=== PATIENT | female | born 1990 | race Caucasian/White ===

== ENCOUNTER 2018-06-09 07:19 | Inpatient (IN) ==
[2018-06-09] MEDS ORDERED: MEPERIDINE 50 MG/1 ML VIAL IV PRN (07:34)
[2018-06-09] MEDS: LACTATED RINGERS 1,000 ML IV SCH (07:50)
[2018-06-09 08:07] LABS: Basophils % 0.2 % (0.0-0.8); Eosinophils % 0.2 % (0.00-10.9); Hematocrit 33.4 VOL% (35.7-47.0); Immature Granulocytes % 0.6 %; Immature Granulocytes Absolute 0.07 #; Lymphocytes # 2.2 10*3/uL (1.4-4.0); Lymphocytes % 18.3 % (21.3-54.2); Mean Corpuscular HGB Conc 32.9 GM/DL (32-36); Mean Corpuscular Hemoglobin 28 PG (27-34); Mean Corpuscular Volume 86.1 FL (87-102); Mean Platelet Volume 11.4 FL (9.6-12.0); Monocytes # 0.6 10*3/uL (0.11-0.8); Monocytes % 4.5 % (1.7-12.7); Neutrophils # 9.2 10*3/uL (1.4-7.4); Neutrophils % 76.2 % (38.7-73.9); Platelet Count 247 T/CUMM (130-400); Red Blood Count 3.88 MC/CUMM (3.8-5.5); Red Cell Distribution Width 14.3 % (9.3-17.3); White Blood Count 12.1 T/CUMM (4-12)
[2018-06-09 08:15] LABS: INR 0.9; PT Patient Result 9.4 SECS; Partial Thromboplastin Time 29.1 SECS (0-40)
[2018-06-09 08:25] LABS: Alanine Aminotransferase 18 U/L (13-56); Albumin 2.4 G/DL (3.4-5.0); Alkaline Phosphatase 157 U/L (45-117); Aspartate Amino Transferase 15 U/L (0-37); Bilirubin,Total < 0.39 MG/DL (0.2-1.0); Blood Urea Nitrogen 11 MG/DL (7-18); Calcium 8.2 MG/DL (8.5-10.1); Glucose 86 MG/DL (74-106); Osmolality,Calculated 276.4 MOS/KG (273-304); Potassium 3.7 MMOL/L (3.5-5.1); Sodium 140 MMOL/L (136-145); Total Protein 6.7 G/DL (6.4-8.3); Uric Acid 4.1 MG/DL (2.6-6.0)
[2018-06-09 08:34] LABS: Rapid Plasma Reagin Confirm NONREACTIVE (Nonreactive)
[2018-06-09] MEDS: AMPICILLIN INJ 2,000 MG in SODIUM CHLORIDE 0.9% 100 ML IV SCH ×2 (17:50→22:30)
[2018-06-09] MEDS: LABETALOL 100 MG TABLET PO SCH (21:13)
[2018-06-10] MEDS ORDERED: OXYTOCIN/LR 20 UNIT/1,000 ML BAG IV SCH ×2 (02:00→06:00)
[2018-06-10] MEDS: LACTATED RINGERS 1,000 ML IV SCH ×2 (02:12→12:49)
[2018-06-10] MEDS: AMPICILLIN INJ 2,000 MG in SODIUM CHLORIDE 0.9% 100 ML IV SCH ×3 (05:00→18:12)
[2018-06-10] MEDS: LABETALOL 100 MG TABLET PO SCH ×2 (09:00→21:22)
[2018-06-10] MEDS ORDERED: LACTATED RINGERS 1,000 ML IV ONE (10:04)
[2018-06-10] MEDS ORDERED: CITRIC ACID/SODIUM CITRATE 30 ML UDCUP PO ONE (10:04)
[2018-06-10] MEDS ORDERED: FAMOTIDINE 20 MG/2 ML VIAL IV ONE (10:04)
[2018-06-10] MEDS ORDERED: ePHEDrine 50 MG/ML AMP IV PRN (10:04)
[2018-06-10] MEDS ORDERED: hydrOXYzine HCL 25 MG/1 ML VIAL IM PRN (10:15)
[2018-06-10] MEDS ORDERED: PROMETHAZINE 25 MG/1 ML VIAL IM ONE (10:15)
[2018-06-10] MEDS ORDERED: diphenhydrAMINE 50 MG/1 ML VIAL IV PRN ×3 (10:15→16:54)
[2018-06-10] MEDS ORDERED: LACTATED RINGERS 250 ML IV PRN (10:15)
[2018-06-10] MEDS ORDERED: NALOXONE 0.4 MG/ML VIAL IV PRN (10:15)
[2018-06-10] MEDS ORDERED: fentaNYL 2 MCG/ROPIV 0.2% EPID 100 ML EPIDURAL SCH (10:30)
[2018-06-10 12:50] LABS: Apearance,Urine CLEAR (Clear); Bilirubin,Urine Negative (Negative); Blood, Urine Negative (Negative); Glucose,Urine (UA) Negative (Negative); Ketones,Urine Negative (Negative); Mucus,Urine Occasional /LPF (Occasional); Nitrite,Urine Negative (Negative); Protein,Urine Negative; RBC,Urine <1 /HPF (0-4); Squamous Epithelial Cell,Urine Occasional /HPF (0-10); Urine Color Yellow (Yellow); Urine Specific Gravity 1.013 (1.001-1.035); Urine Urobilinogen < 2.0 EU/DL (0.2-1.0)
[2018-06-10] MEDS ORDERED: LIDOCAINE MPF 2% /EPI 20 ML VIAL ONE (16:10)
[2018-06-10] MEDS ORDERED: MORPHINE 10 MG/10 ML VIAL ONE (16:10)
[2018-06-10] MEDS ORDERED: ceFAZolin 3,000 MG in SYRINGE 1 EACH IV ONE (16:11)
[2018-06-10] MEDS ORDERED: OXYTOCIN 10 UNIT/ML VIAL IM ONE (16:12)
[2018-06-10] MEDS ORDERED: OXYTOCIN/LR 30 UNIT/1,000 ML BAG IV ONE (16:12)
[2018-06-10] MEDS ORDERED: HYDROmorphone 2 MG/1 ML VIAL IV PRN (16:54)
[2018-06-10] MEDS ORDERED: ONDANSETRON 4 MG/2 ML VIAL IV PRN (16:54)
[2018-06-10] MEDS ORDERED: LACTATED RINGERS 1,000 ML IV SCH (17:00)
[2018-06-10] MEDS ORDERED: SODIUM CHLORIDE 0.9% 1,000 ML IV SCH (17:00)
[2018-06-10 17:20] LABS: Cord Venous Blood PCO2 40.5 MMHG
[2018-06-10 17:23] LABS: Cord Arterial Blood HCO3 21.7 MMOL/L
[2018-06-10] MEDS: ONDANSETRON 4 MG/2 ML VIAL IV PRN (21:22)
[2018-06-11] MEDS: ceFAZolin 1,000 MG in SYRINGE 1 EACH IV SCH ×2 (00:48→09:00)
[2018-06-11] MEDS: LACTATED RINGERS 1,000 ML IV SCH ×2 (02:00→09:05)
[2018-06-11 06:07] LABS: Basophils % 0.1 % (0.0-0.8); Hematocrit 28.6 VOL% (35.7-47.0); Hemoglobin 9.7 GM/DL (12.0-16.0); Immature Granulocytes % 0.5 %; Immature Granulocytes Absolute 0.07 #; Lymphocytes # 1.5 10*3/uL (1.4-4.0); Lymphocytes % 10.1 % (21.3-54.2); Mean Corpuscular HGB Conc 33.9 GM/DL (32-36); Mean Corpuscular Hemoglobin 28 PG (27-34); Mean Corpuscular Volume 83.9 FL (87-102); Mean Platelet Volume 11.7 FL (9.6-12.0); Monocytes # 0.5 10*3/uL (0.11-0.8); Monocytes % 3.6 % (1.7-12.7); Neutrophils # 12.6 10*3/uL (1.4-7.4); Neutrophils % 85.7 % (38.7-73.9); Platelet Count 221 T/CUMM (130-400); Red Blood Count 3.41 MC/CUMM (3.8-5.5); Red Cell Distribution Width 14.4 % (9.3-17.3); White Blood Count 14.7 T/CUMM (4-12)
[2018-06-11] MEDS: ONDANSETRON 4 MG/2 ML VIAL IV PRN (06:30)
[2018-06-11] MEDS ORDERED: PROMETHAZINE 25 MG/1 ML VIAL IM PRN (08:07)
[2018-06-11] MEDS ORDERED: MAGNESIUM HYDROXIDE SUSP 30 ML UDCUP PO PRN (08:44)
[2018-06-11] MEDS ORDERED: BISACODYL 10 MG SUPP RECTAL PRN (08:44)
[2018-06-11] MEDS ORDERED: SIMETHICONE CHEW 80 MG TABLET PO PRN (08:44)
[2018-06-11] MEDS: LABETALOL 100 MG TABLET PO SCH ×2 (09:03→21:04)
[2018-06-11] MEDS: METOCLOPRAMIDE 10 MG/2 ML VIAL IV SCH ×2 (09:05→17:12)
[2018-06-11] MEDS ORDERED: RHO(D) IMMUNE GLOBULIN 300 MCG SYRINGE IM ONE (15:06)
[2018-06-11] MEDS: DOCUSATE SODIUM 100 MG CAPSULE PO SCH (21:04)
[2018-06-11] MEDS: FERROUS SULFATE 325 MG TABLET PO SCH (21:04)
[2018-06-11] MEDS: IBUPROFEN 800 MG TABLET PO PRN (23:20)
[2018-06-12] MEDS: METOCLOPRAMIDE 10 MG TABLET PO SCH ×2 (00:58→08:35)
[2018-06-12 07:44] VITALS: BP 137/90
[2018-06-12] MEDS: LABETALOL 100 MG TABLET PO SCH (08:09)
[2018-06-12] MEDS: IBUPROFEN 800 MG TABLET PO PRN (08:10)
[2018-06-12] MEDS: DOCUSATE SODIUM 100 MG CAPSULE PO SCH (08:10)
[2018-06-12] MEDS: FERROUS SULFATE 325 MG TABLET PO SCH (08:10)
[2018-06-12] MEDS ORDERED: DIPH/TET/ACEL PERT BOOSTER VACCINE 0.5 ML VIAL IM ONE (10:56)
== END 2018-06-12 13:10 | disposition home or self-care (01) | DRG 766 ==
LOC: N.LDOUT 07:19 → N.LD 07:22 → N.OB 06-10 21:00
PROVIDERS: ADMIT Obstetrics & Gynecology; ATTEND Obstetrics & Gynecology
PROC: LDCSECT (ICD-10-PCS; 2018-06-10 16:30)